=== PATIENT | male | born 1995 | race Hispanic/Latino ===

== ENCOUNTER 2025-01-01 11:48 | Emergency (ER) | payer BC, SELFPAY ==
[2025-01-01 12:42] LABS: #Basophils Less than 0.03 10x3/uL (0.0-0.2); #Eosinophils Less than 0.03 10x3/uL (0.0-0.7); #Monocytes 0.84 10x3/uL (0.11-0.59); #Neutrophils 11.02 10x3/uL (1.40-6.50); %Basophils 0.1 % (0.0-1.0); %Eosinophils 0.1 % (0.0-10.0); %Lymphocytes 13.9 % (21.0-51.0); %Monocytes 6.1 % (0.0-10.0); %Neutrophils 79.4 % (42.0-75.0); Hematocrit 41.9 % (42.0-52.0); Hemoglobin 14.5 g/dL (14.0-18.0); Mean Corpuscular Hemoglobin 30.7 pg (27.0-31.0); Mean Corpuscular Volume 88.6 fL (78.0-98.0); Platelet Count 242 10x3/uL (130-400); Red Blood Cell (RBC) Count 4.73 mill/uL (4.70-6.10); White Blood Cell (WBC) Count 13.87 10x3/uL (4.8-10.8)
[2025-01-01 13:11] LABS: ALT (SGPT) 70 U/L (Less than 45); AST (SGOT) 46 U/L (11-34); Albumin 4.2 g/dL (3.1-4.5); Alkaline Phosphatase 90 U/L (40-110); Anion Gap 18 mmol/L (10-20); BUN (Urea Nitrogen) 8 mg/dL (8.9-20.6); Bilirubin, Total 0.6 mg/dL (0.3-1.2); CK (CPK) 644 U/L (30-200); Calc. Creatinine Clearance 0 mL/min (70-130); Calcium 8.9 mg/dL (7.8-10.44); Carbon Dioxide 20 mmol/L (22-29); Chloride 100 mmol/L (98-107); Globulin 4.4 g/dL (2.4-3.5); Glucose 105 mg/dL (70-105); Potassium 3.6 mmol/L (3.5-5.1); Sodium 134 mmol/L (136-145)
[2025-01-01] MEDS ORDERED: Ketorolac Tromethamine 30 MG (1 mL) VIAL ONE (13:49)
== END 2025-01-01 15:51 | disposition home or self-care (01) ==
LOC: ERS 11:48
DX: T67.5XXA Heat exhaustion, unspecified, initial encounter (principal); R03.0 Elevated blood-pressure reading, without diagnosis of hypertension; R94.5 Abnormal results of liver function studies; X01.1XXA Exposure to smoke in uncontrolled fire, not in building or structure, initial encounter
CPT/HCPCS: 36415; 71046; 80053; 82550; 84484; 85025; 85379; 93005; 96374; J1885